=== PATIENT | male | born 1980 | race Caucasian/White ===

== ENCOUNTER 2017-01-04 22:02 | Inpatient (IN) | payer MEDICARE ==
[~2017-01-04] VITALS: Ht 172.7 cm; Wt 95.9 kg
[~2017-01-04 22:02] MED LIST: AMIT50TA3 PO; HYDR-4031 PO
[2017-01-04 22:23] LABS: BASOPHILS % (AUTO) 0.2 % (0.0-2.0); EOSINOPHILS % (AUTO) 0.1 % (1.0-6.0); HEMOGLOBIN 16.8 g/dL (13.5-17.5); LYMPHOCYTES # (AUTO) 2.3 K/uL (1.0-4.8); LYMPHOCYTES % (AUTO) 28.6 % (22.0-44.0); MEAN CORPUSCULAR HEMOGLOBIN 28.8 pg (26.0-34.0); MEAN CORPUSCULAR HGB CONC 33.7 G/dL (31.0-37.0); MEAN CORPUSCULAR VOLUME 85 fL (80-100); MONOCYTES # (AUTO) 0.3 K/uL (0.1-1.0); MONOCYTES % (AUTO) 3.4 % (2.0-9.0); NEUTROPHILS # (AUTO) 5.4 K/uL (1.8-7.7); NEUTROPHILS % (AUTO) 67.7 % (40.0-70.0); PLATELET COUNT (AUTO) 221 K/uL (150-450); RED BLOOD CELL COUNT(AUTO) 5.85 MIL/uL (4.50-5.90); RED CELL DISTRIBUTION WIDTH 12.6 % (11.5-14.5)
[2017-01-04 22:33] LABS: ANION GAP 14 mmol/L (8-16); CALCIUM, TOTAL 9.6 mg/dL (8.8-10.5); CARBON DIOXIDE 22 mmol/L (22-29); CHLORIDE 105 mmol/L (98-107); CREATININE 0.92 mg/dL (0.60-1.30); GLOMERULAR FILTR. RATE CALC > 60 mL/min (>60); POTASSIUM 3.8 mmol/L (3.5-5.1); SODIUM SERUM 141 mmol/L (136-145); UREA NITROGEN, BLOOD 13 mg/dL (7-18)
[2017-01-04 22:41] LABS: ALANINE AMINOTRANSFERASE 37 U/L (12-78); ALBUMIN 4.4 g/dL (3.4-5.0); ASPARTATE AMINOTRANSFERASE 18 U/L (15-37); BILIRUBIN,TOTAL 0.3 mg/dL (0.1-1.0); TOTAL PROTEIN, SERUM 8.5 g/dL (6.4-8.2)
[2017-01-04] MEDS ORDERED: LORazepam 2 MG/ML VIAL ONE (23:45)
[2017-01-04] MEDS ORDERED: HALOPERIDOL LACTATE 5 MG/ML VIAL ONE (23:45)
[2017-01-04] MEDS ORDERED: LORazepam 2 MG/ML VIAL IM ONE (23:45)
[2017-01-04] MEDS ORDERED: HALOPERIDOL LACTATE 5 MG/ML VIAL IM ONE (23:45)
[2017-01-04] MEDS ORDERED: DiphenhydrAMINE HCL 50 MG/ML VIAL IM ONE (23:45)
[2017-01-04] MEDS ORDERED: DiphenhydrAMINE HCL 50 MG/ML VIAL ONE (23:45)
[2017-01-05] VITALS (8 sets, daily range): BP systolic 102–135; BP diastolic 64–88
[2017-01-05] MEDS ORDERED: MAGNESIUM HYDROXIDE SUSPENSION 30 ML UDCUP PO PRN (00:15)
[2017-01-05] MEDS ORDERED: LORazepam 2 MG TABLET PO PRN (00:15)
[2017-01-05] MEDS ORDERED: PROMETHAZINE HCL 25 MG TABLET PO PRN (00:15)
[2017-01-05] MEDS ORDERED: ACETAMINOPHEN 325 MG TABLET PO PRN (00:15)
[2017-01-05] MEDS ORDERED: CYANOCOBALAMIN 1,000 MCG/ML VIAL IM ONE (00:15)
[2017-01-05] MEDS ORDERED: LOPERAMIDE HCL 2 MG CAPSULE PO PRN (00:15)
[2017-01-05] MEDS ORDERED: MAG HYDROX/AL HYDROX/SIMETH ES 30 ML SUSPENSION UDCUP PO PRN (00:15)
[2017-01-05 02:59] LABS: CHOL/HDL RATIO 6.7 (4.2-7.3)
[2017-01-05] MEDS: THIAMINE HCL 100 MG TABLET PO SCH ×2 (09:31→16:38)
[2017-01-05] MEDS: MULTIVITAMINS WITH MINERALS, THERAPEUTIC TABLET PO SCH (09:31)
[2017-01-06 03:00] VITALS: BP 107/69
[2017-01-06] MEDS: LORazepam 2 MG TABLET PO PRN ×2 (04:28→20:43)
[2017-01-06] MEDS ORDERED: PNEUMOCOCCAL VACCINE POLYVALENT 0.5 ML VIAL [PPSV23] IM ONE (06:45)
[2017-01-06] MEDS ORDERED: LORazepam 2 MG TABLET PO PRN (07:00)
[2017-01-06 07:20] VITALS: BP 106/68
[2017-01-06 08:09] VITALS: BP 125/82
[2017-01-06] MEDS: MULTIVITAMINS WITH MINERALS, THERAPEUTIC TABLET PO SCH (09:24)
[2017-01-06] MEDS: GABAPENTIN 300 MG CAPSULE PO SCH ×3 (09:24→16:40)
[2017-01-06] MEDS: THIAMINE HCL 100 MG TABLET PO SCH ×2 (09:24→16:40)
[2017-01-06] MEDS: LORazepam 2 MG TABLET PO SCH ×3 (09:24→16:40)
[2017-01-06] MEDS: FLUoxetine HCL 20 MG CAPSULE PO SCH (09:24)
[2017-01-06 16:07] VITALS: BP 128/88
[2017-01-06] MEDS: HALOPERIDOL 5 MG TABLET PO PRN (18:34)
[2017-01-06] MEDS: ZOLPIDEM TARTRATE 10 MG TABLET PO PRN (20:22)
[2017-01-06] MEDS: TiZANidine HCL 4 MG TABLET PO PRN (21:43)
[2017-01-07 05:49] VITALS: BP 122/80
[2017-01-07 08:38] VITALS: BP 114/74
[2017-01-07] MEDS: MULTIVITAMINS WITH MINERALS, THERAPEUTIC TABLET PO SCH (09:20)
[2017-01-07] MEDS: LORazepam 2 MG TABLET PO PRN ×2 (09:24→14:46)
[2017-01-07] MEDS: GABAPENTIN 300 MG CAPSULE PO SCH ×3 (09:26→16:44)
[2017-01-07] MEDS: FLUoxetine HCL 20 MG CAPSULE PO SCH (09:26)
[2017-01-07] MEDS: THIAMINE HCL 100 MG TABLET PO SCH ×2 (09:26→16:44)
[2017-01-07] MEDS: TiZANidine HCL 4 MG TABLET PO PRN (14:44)
[2017-01-07 16:10] VITALS: BP 115/76
[2017-01-07] MEDS: ZOLPIDEM TARTRATE 10 MG TABLET PO PRN (20:11)
[2017-01-07] MEDS: HALOPERIDOL 5 MG TABLET PO PRN (22:54)
[2017-01-08 06:10] VITALS: BP 111/60
[2017-01-08] MEDS ORDERED: LORazepam 1 MG TABLET PO PRN (07:00)
[2017-01-08 08:45] VITALS: BP 107/65
[2017-01-08] MEDS ORDERED: LORazepam 1 MG TABLET PO SCH (09:00)
[2017-01-08] MEDS: GABAPENTIN 300 MG CAPSULE PO SCH ×3 (09:25→16:28)
[2017-01-08] MEDS: LORazepam 2 MG TABLET PO PRN ×2 (09:25→15:49)
[2017-01-08] MEDS: FLUoxetine HCL 20 MG CAPSULE PO SCH (09:25)
[2017-01-08] MEDS: MULTIVITAMINS WITH MINERALS, THERAPEUTIC TABLET PO SCH (09:25)
[2017-01-08] MEDS: THIAMINE HCL 100 MG TABLET PO SCH ×2 (09:25→16:28)
[2017-01-08] MEDS: TiZANidine HCL 4 MG TABLET PO PRN (11:53)
[2017-01-08 16:30] VITALS: BP 122/70
[2017-01-08] MEDS: ZOLPIDEM TARTRATE 10 MG TABLET PO PRN (21:32)
[2017-01-09] MEDS: HALOPERIDOL 5 MG TABLET PO PRN ×2 (00:04→09:21)
[2017-01-09] MEDS: LORazepam 2 MG TABLET PO PRN ×2 (00:04→09:22)
[2017-01-09 00:07] VITALS: BP 126/79
[2017-01-09] MEDS ORDERED: LORazepam 1 MG TABLET PO PRN (07:00)
[2017-01-09 08:36] VITALS: BP 110/72
[2017-01-09] MEDS: GABAPENTIN 300 MG CAPSULE PO SCH ×2 (08:53→13:01)
[2017-01-09] MEDS: THIAMINE HCL 100 MG TABLET PO SCH (08:53)
[2017-01-09] MEDS: MULTIVITAMINS WITH MINERALS, THERAPEUTIC TABLET PO SCH (08:54)
[2017-01-09] MEDS: FLUoxetine HCL 20 MG CAPSULE PO SCH (08:54)
[2017-01-09] MEDS ORDERED: FLUO-191 PO (14:56)
[2017-01-09] MEDS ORDERED: GABA-531 PO (14:56)
== END 2017-01-09 16:10 | disposition home or self-care (01) | DRG 885 ==
LOC: EMS 22:06 → B3A 01-05 00:12
PROVIDERS: ADMIT Psychiatry & Neurology Child & Adolescent Psychiatry; ATTEND Psychiatry & Neurology Psychiatry
DX: F25.0 Schizoaffective disorder, bipolar type (principal); R45.851 Suicidal ideations; I10 Essential (primary) hypertension; M62.838 Other muscle spasm; M79.7 Fibromyalgia; F10.129 Alcohol abuse with intoxication, unspecified; Y90.8 Blood alcohol level of 240 mg/100 ml or more; R45.850 Homicidal ideations; E78.1 Pure hyperglyceridemia; Z78.1 Physical restraint status
CPT/HCPCS: 96372; 99285; G0480; J1200; J1630; J2060; J3420

== ENCOUNTER 2020-12-16 19:43 | Emergency (ER) | payer MEDICARE, OTHER ==
[~2020-12-16] VITALS: Ht 172.7 cm; Wt 122.7 kg
[~2020-12-16 19:43] MED LIST changes: -AMIT50TA3 PO; +FLUO-191 PO; +GABA-1181 PO; -HYDR-4031 PO
[2020-12-16 20:21] LABS: BASOPHILS % (AUTO) 0.2 % (0.0-2.0); EOSINOPHILS % (AUTO) 1.8 % (1.0-6.0); HEMATOCRIT 38.7 % (41-53); LYMPHOCYTES # (AUTO) 3.6 K/uL (1.0-4.8); LYMPHOCYTES % (AUTO) 41.4 % (22.0-44.0); MEAN CORPUSCULAR HEMOGLOBIN 29.1 pg (26.0-34.0); MEAN CORPUSCULAR HGB CONC 33.5 G/dL (31.0-37.0); MEAN CORPUSCULAR VOLUME 87 fL (80-100); MONOCYTES # (AUTO) 0.6 K/uL (0.1-1.0); NEUTROPHILS # (AUTO) 4.3 K/uL (1.8-7.7); NEUTROPHILS % (AUTO) 49.6 % (40.0-70.0); PLATELET COUNT (AUTO) 185 K/uL (150-450); RED BLOOD CELL COUNT(AUTO) 4.45 MIL/uL (4.50-5.90); RED CELL DISTRIBUTION WIDTH 13.2 % (11.5-14.5)
[2020-12-16 20:32] LABS: ANION GAP 9 mmol/L (8-16); CARBON DIOXIDE 30 mmol/L (22-29); CHLORIDE 103 mmol/L (98-107); CREATININE 0.95 mg/dL (0.60-1.30); GLOMERULAR FILTR. RATE CALC > 60 mL/min (>60); GLUCOSE,RANDOM 123 mg/dL (70-110); POTASSIUM 3.9 mmol/L (3.5-5.1); SODIUM SERUM 142 mmol/L (136-145); UREA NITROGEN, BLOOD 7 mg/dL (7-18)
[2020-12-16 20:38] LABS: ALANINE AMINOTRANSFERASE 84 U/L (12-78); ALBUMIN 3.8 g/dL (3.4-5.0); ALKALINE PHOSPHATASE 80 U/L (46-116); ASPARTATE AMINOTRANSFERASE 46 U/L (15-37); BILIRUBIN,TOTAL 0.3 mg/dL (0.1-1.0); TOTAL PROTEIN, SERUM 7.3 g/dL (6.4-8.2)
[2020-12-17 00:07] LABS: AMPHET/METH SCREEN,URINE NEGATIVE (NEGATIVE); BARBITURATE SCREEN, URINE NEGATIVE (NEGATIVE); BENZODIAZEPINES SCREEN,URINE NEGATIVE (NEGATIVE); CANNABINOID SCREEN,URINE NEGATIVE (NEGATIVE); COCAINE SCREEN,URINE NEGATIVE (NEGATIVE); METHADONE SCREEN, URINE NEGATIVE (NEGATIVE); OPIATE SCREEN,URINE POSITIVE (NEGATIVE)
[2020-12-17 00:23] LABS: PHENCYCLIDINE SCREEN,URINE NEGATIVE (NEGATIVE)
[2020-12-17 01:39] VITALS: BP 164/90
== END 2020-12-17 02:21 | disposition home or self-care (01) ==
LOC: EMS 19:44
DX: F41.9 Anxiety disorder, unspecified (principal); M79.604 Pain in right leg; M79.605 Pain in left leg; R60.0 Localized edema; I10 Essential (primary) hypertension; E11.9 Type 2 diabetes mellitus without complications; F11.90 Opioid use, unspecified, uncomplicated; F17.210 Nicotine dependence, cigarettes, uncomplicated; Z79.899 Other long term (current) drug therapy
CPT/HCPCS: 36415; 71045; 80053; 80307; 83880; 84484; 85025; 93005; 99285; G0480